=== PATIENT | male | born 1995 | race Caucasian/White ===

== ENCOUNTER 2022-12-19 08:02 | Outpatient (CLI) | payer OTHER, SELFPAY ==
--- NOTE | 2022-12-19 08:15 | CRLHL7_ITS ---
For Patients: As a result of the Century Cures Act, medical imaging exams and procedure reports are released immediately into your electronic medical record. You may view this report before your referring provider. If you have questions, please contact your health care provider. Indication: LT HIP PAIN FOR 4 YEARS. LABRAL TEAR Procedure : Informed consent was obtained. The site was marked. Time-out was performed. The skin of the left hip was cleansed with ChloraPrep. A sterile drape was placed. 8 cc of 1 percent lidocaine was administered for superficial anesthesia. Subsequently a 22 gauge spinal needle was introduced into the left hip joint under intermittent fluoroscopic guidance. Injection of 2 cc nonionic Omnipaque 240 contrast confirmed intra-articular location. Subsequently 11 cc of dilute gadolinium were injected. The needle was removed and hemostasis achieved with direct pressure. A dressing was placed. The patient tolerated the procedure well without immediate complication and was immediately sent to MRI for imaging. Total fluoroscopy time 40 seconds. Impression: Successful fluoroscopically guided left hip arthrogram for MRI. Dictated by Austin Bullock MD @ 12/19/2022 12:26:10 PM (Electronically Signed)
--- NOTE | 2022-12-19 09:15 | MR_ITS ---
[facility] [address] [facility] [address] Phone:?[phone] Fax:?[phone] Referring Physician Information: Tra Hogan M.D. [address] [place] [id number] Phone:?[phone] Fax:?[phone] Patient:?Janet Forbes D.O.B:?1995 Sex:?Male Phone:?[phone] [facility] MRN:?[id number] Exam Date:?12/19/2022 ? EXAM: MR ARTHROGRAM OF THE LEFT HIP CLINICAL: Left hip pain for years. Evaluate for labral tear. COMPARISONS: None available. TECHNICAL: MR sequences of the left hip: coronals: PD, T2, T1FS sagittals: PD, T2, T1FS axial obliques: PD axials: T2FS coronals of pelvis: T1, STIR SEDATION: None CONTRAST: Intra-articular gadolinium based contrast. FINDINGS: Hip joint: Contrast in the left hip joint reflects successful arthrography. No convincing intra-articular bodies. No significant chondral loss. Labrum: There is tearing of the anterior and anterosuperior labrum as seen on axial oblique series 8 images 14-18. Tearing involves the superior extending into the posterior superior labrum on coronal series 4 images 11-17. No perilabral cyst formation. Proximal femur: No marrow edema, fracture or osteonecrosis. No convincing femoral cam morphology. Acetabulum: No significant subchondral marrow edema, cystic change or fracture. Version: No convincing retroversion. Coverage: Left lateral center edge (CE) angle measures approximately 29? (normal 25?-39?), midline coronal series 7 image 17. Ligamentum teres: Intact and unremarkable. Pelvis osseous structures: No suspicious marrow signal alteration or fracture line. Sacroiliac joints are maintained without marrow signal changes to suggest sacroiliitis or signficant arthrosis. No evident arthrosis or changes of osteitis pubis at the pubic symphysis. Myotendinous structures: Gluteus abductors: No convincing insertional tendinopathy or tear of gluteus minimus or medius. Adductors: No demonstrable tendinopathy or strain/tear. Pre-pubic aponeurotic complex: Intact, without evidence of rectus abdominis- adductor longus aponeurosis or pubic plate lesion. Hamstrings: Intact semimembranosus, semitendinosus and biceps femoris tendons, without tendinopathy or tear. Flexors: Intact iliopsoas and rectus femoris, without strain/tear. External rotators: Intact, without demonstrable ischiofemoral impingement. Bursae: No significant trochanteric or iliopsoas bursitis. Intrapelvic structures: Although evaluation of the intrapelvic structures is limited on this exam, no convincing pelvic mass is identified as visualized. IMPRESSION: 1. Tearing of the acetabular labrum as above. 2. No additional internal derangement identified. JCZ Electronically signed on 12/19/2022 1:58:00 PM by Jhon Joya D.O.
== END 2022-12-19 08:03 | disposition home or self-care (01) ==
PROVIDERS: PCP Family Medicine; Visit Provider Orthopaedic Surgery
DX: M25.552 Pain in left hip (principal); S73.192A Other sprain of left hip, initial encounter
CPT/HCPCS: 27093; 73525; 73722; A9575

== ENCOUNTER 2023-10-23 08:00 | Outpatient (CLI) | payer OTHER, SELFPAY ==
--- NOTE | 2023-10-23 08:15 | MR_ITS ---
[address] [address] Phone:?[phone] Fax:?[phone] Referring Physician Information: Stephanie Yang [address] [facility] [address] Phone:?[phone] Fax:?[phone] Patient:?Janet Forbes D.O.B:?1995 Sex:?Male Phone:?[phone] [facility] MRN:?[id number] Exam Date:?10/23/2023 EXAM: MRI OF THE RIGHT HAND CLINICAL INFORMATION: The patient is a 27-year-old with right hand pain. PRIOR SURGERY: None reported. COMPARISON STUDIES: There are no prior studies available for comparison. TECHNICAL INFORMATION: Imaging was produced on a high-field, 1.5 Kanwal MR scanner. Coronal proton-density, T2, and STIR imaging of the right hand was performed in addition to axial proton-density and T2 imaging. Sagittal proton- density and T2 imaging was also performed. FINDINGS: Osseous structures:?No evidence for bony abnormality of the metacarpal region can be seen. There is no evidence for metacarpal fracture or metatarsal stress injury. There is no evidence for destructive bony lesion or periosteal reaction. No evidence for acute bony injury of the phalanges can be seen. Articular surfaces:?No definite articular abnormalities of the interphalangeal joints can be seen. No definite abnormalities along the articular surfaces of the MCP joint are present. No definite injuries along the articular surfaces of the visualized CMC joints can be seen. Ligamentous and capsular structures:?No definite evidence for well-defined capsular or ligamentous injury can be seen on the basis of this examination. Musculotendinous structures: Flexor tendons:?Intact and normal in appearance. Extensor tendons:?Intact and normal in appearance. Intrinsic musculature:?Within normal limits. Neurovascular structures:?Within normal limits. CONCLUSION: 1. No definite bony or articular abnormalities of the right hand can be seen. 2. No definite musculotendinous injuries are seen. 3. No neurovascular abnormalities are identified. 4. No abnormal fluid collections are noted. [facility] Electronically signed on 10/23/2023 10:22:00 AM by Andrez Lo M.D.
== END 2023-10-23 08:01 | disposition home or self-care (01) ==
LOC: MRI 08:02
PROVIDERS: PCP Family Medicine; Visit Provider Physician Assistant
DX: M25.541 Pain in joints of right hand (principal)
CPT/HCPCS: 73218